=== PATIENT | male | born 1935 | race Caucasian/White ===

== ENCOUNTER 2016-08-17 14:49 | Emergency (ER) | payer BC, OTHER ==
[~2016-08-17 14:49] MED LIST: ASPI81TA28 PO; CALC-20 PO; COEN1CAP28 PO; CYAN100020 PO; FINA5TAB PO; GLUCTAB7 PO; KRIL1000 PO; MULT-506 PO; REDCAP2 PO
[2016-08-17 14:53] VITALS: TEMP 36.7
[2016-08-17] MEDS ORDERED: SODIUM CHLORIDE 0.9% 1000ML 1,000 ML IV STA (15:09)
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
--- NOTE | 2016-08-17 15:23 | DIAGNOSTIC IMAGING REPORT ---
CHEST ONE VIEW PORTABLE CLINICAL HISTORY: Pain, radiating to the abdomen. COMPARISON STUDY: No previous studies for comparison. FINDINGS: The cardiac and mediastinal contours are normal. There is no evidence of focal pulmonary consolidation. There is no evidence of failure. No pleural effusions are visualized.[ There is a calcified granuloma within the right apex. There are minor basilar atelectatic changes. There is no free intraperitoneal air. IMPRESSION: No active disease in the chest. Electronically signed by: Anam Nam M.D. 08/17/2016 3:21 PM Dictated Date/Time: 08/17/2016 3:21 PM
[2016-08-17 15:36] LABS: BASO % 0.4 %; BASO ABS # 0.03 K/uL (0-0.2); COMPLETE YES; EOS % 3.1 %; HEMATOCRIT 40.2 % (42-52); IG% 0.1 %; LYMPH % 13.5 %; LYMPH ABS # 1.15 K/uL (1.2-3.4); MEAN CELL VOLUME 93.5 fL (80-100); MEAN CORPUSCULAR HEMOGLOBIN 32.1 pg (25-34); MEAN CORPUSCULAR HGB CONC 34.3 g/dl (32-36); MEAN PLATELET VOLUME 9.5 fL (7.4-10.4); MONO % 4.9 %; PLATELET COUNT 164 K/uL (130-400); WHITE BLOOD COUNT 8.51 K/uL (4.8-10.8)
[2016-08-17 15:46] LABS: PARTIAL THROMBOPLASTIN RATIO 1.1; PROTHROMBIN TIME (PATIENT) 10.7 SECONDS (9.0-12.0)
[2016-08-17 15:53] LABS: ALT/SGPT 36 U/L (12-78); AST/SGOT 29 U/L (15-37); BLOOD UREA NITROGEN 23 mg/dl (7-18); CALCIUM 8.8 mg/dl (8.5-10.1); CARBON DIOXIDE 27 mmol/L (21-32); CHLORIDE 108 mmol/L (98-107); GLUCOSE 113 mg/dl (70-99); POTASSIUM 4.1 mmol/L (3.5-5.1); SODIUM 141 mmol/L (136-145)
--- NOTE | 2016-08-17 15:56 | DIAGNOSTIC IMAGING REPORT ---
ABDOMEN AND PELVIS CT WITHOUT CONTRAST CT DOSE: 520.54 mGy.cm HISTORY: Pain left flank pain TECHNIQUE: Multiaxial CT images of the abdomen and pelvis were performed without contrast. COMPARISON STUDY: None. FINDINGS: Lung bases are clear. Liver spleen and pancreas are unremarkable. Gallbladder is negative for distention. There is moderate fatty replacement of the pancreas. Right kidney shows several small parapelvic cysts. Right kidney is negative for hydronephrosis. There are findings of mild left renal hydronephrosis. Several left renal parapelvic cysts are also present. Left ureter is moderately distended and to a large calculus of the distal left ureter measuring 16 x 10 mm. This is mainly proximal to the left ureterovesical junction. Bladder is midline. There are no contained calcifications. Prostate is enlarged. Bowel pattern is considered nonobstructive throughout. IMPRESSION: 1. Obstructing calculus distal left ureter with mild/moderate left hydroureteronephrosis. 2. Calculus measures 16 x 10 mm. 3. Remainder of the study is negative. Electronically signed by: Daniel Munroe M.D. 08/17/2016 3:54 PM Dictated Date/Time: 08/17/2016 3:50 PM
[2016-08-17 15:58] LABS: ALKALINE PHOSPHATASE 71 U/L (45-117)
[2016-08-17 16:35] LABS: URINE APPEARANCE CLEAR (CLEAR); URINE BILIRUBIN NEG (NEG); URINE COLOR YELLOW; URINE NITRITE NEG (NEG); URINE PH 7.5 (4.5-7.5); URINE SPECIFIC GRAVITY 1.023 (1.000-1.030); UROBILINOGEN NEG (NEG)
[2016-08-17 16:38] LABS: MANUAL MICROSCOPIC REQUIRED? NO; REVIEW REQ? NO; SULFASALICYLIC ACID POS (NEG)
[2016-08-17] MEDS ORDERED: OXYC1TAB3 PO (17:11)
[2016-08-17 17:53] VITALS: BP 152/75; PULSE 59; O2SAT 96
[2016-08-21] MEDS ORDERED: FINA5TAB PO (16:31)
[2016-08-21] MEDS ORDERED: TAMS0.4C38 PO (16:31)
[2016-08-30] MEDS ORDERED: TAMS0.4C38 PO (12:46)
[2016-08-30] MEDS ORDERED: OXYC-57 PO (12:46)
[2016-08-30] MEDS ORDERED: PHEN-775 PO (12:46)
== END 2016-08-17 17:54 | disposition home or self-care (01) ==
LOC: C.EDB 14:50
DX: N20.2 Calculus of kidney with calculus of ureter (principal); Z98.890 Other specified postprocedural states; Z79.82 Long term (current) use of aspirin

== ENCOUNTER 2016-08-30 07:02 | Day surgery (SDC) | payer BC, OTHER ==
[2016-08-21 16:22] VITALS: BMI 25.0
[~2016-08-30] VITALS: Ht 182.9 cm; Wt 84.1 kg
[~2016-08-30 07:02] MED LIST changes: +CEFAZOLIN IV 2,000 MG/60 ML D5W IV ONE; +CIPROFLOXACIN 500 MG TAB PO SCH; +FENTANYL CITRATE INJ 50 MCG/1 ML 2 ML VIAL ONE; +LACTATED RINGER'S 1000ML 1,000 ML IV SCH; +MIDAZOLAM HCL 1 MG/ML 2ML VIAL ONE; +TAMS0.4C38 PO
[2016-08-30] MEDS ORDERED: REDCAP2 PO (07:33)
[2016-08-30 07:34] VITALS: BP 145/73; PULSE 69; TEMP 36.4; O2SAT 98; Ht 182.9 cm; Wt 84.1 kg
[2016-08-30] MEDS ORDERED: PROPOFOL IV EMULSION 10 MG/ML 20 ML VIAL IV ONE (08:02)
[2016-08-30] MEDS ORDERED: LIDOCAINE HCL 2% 2 ML VIAL (20MG/ML) ONE (08:02)
[2016-08-30] MEDS ORDERED: FENTANYL CITRATE INJ 50 MCG/1 ML 2 ML VIAL ONE (08:02)
[2016-08-30] MEDS ORDERED: DEXAMETHASONE SOD INJ 4 MG/ML VIAL ONE (08:02)
[2016-08-30] MEDS ORDERED: ONDANSETRON INJ 2 MG/ML 2 ML VIAL ONE (08:02)
[2016-08-30] MEDS ORDERED: MIDAZOLAM HCL 1 MG/ML 2ML VIAL ONE (08:02)
[2016-08-30] MEDS ORDERED: FENTANYL CITRATE INJ 50 MCG/1 ML 2 ML VIAL IV PRN (08:30)
[2016-08-30] MEDS ORDERED: ONDANSETRON INJ 2 MG/ML 2 ML VIAL IV PRN (08:30)
[2016-08-30] MEDS ORDERED: ATROPINE SULFATE 0.1 MG/ML 5ML SYR IV PRN (08:30)
[2016-08-30] MEDS ORDERED: EpHEDrine SULFATE INJ 50 MG/ML AMP IV PRN (08:30)
--- NOTE | 2016-08-30 09:59 | History & Physical Bridge Note ---
H&P Re-Evaluation Bridge Note: I have examined the patient, reviewed the History & Physical and in the interval since the performance of the History & Physical I have noted the following changes of clinical significance: No changes noted
[2016-08-30] MEDS ORDERED: EpINEphrine INJ 1MG/ML AMP 1 MG/ML AMP ONE (10:53)
[2016-08-30] MEDS ORDERED: EpHEDrine SULFATE INJ 50 MG/ML AMP ONE ×2 (10:53→11:43)
[2016-08-30] MEDS ORDERED: SODIUM CHLORIDE 0.9% INJ 10 ML VIAL ONE (10:53)
[2016-08-30] MEDS ORDERED: BELLADONNA/OPIUM SUPP 60 MG SUPP PR ONE (10:53)
[2016-08-30] MEDS ORDERED: PHENYLEPHRINE HCL INJ 10 MG/ML VIAL ONE (12:07)
--- NOTE | 2016-08-30 12:43 | DIAGNOSTIC IMAGING REPORT ---
KUB CLINICAL HISTORY: LT CYSTO/LASER/BASKET EXTRACTION/STENT stone extraction TECHNIQUE: Image intensifier COMPARISON STUDY: None FINDINGS: Image intensifier assistance provided for cystoscopy and stone extraction IMPRESSION: Image intensifier usage Electronically signed by: Daniel Munroe M.D. 08/30/2016 12:42 PM Dictated Date/Time: 08/30/2016 12:41 PM
--- NOTE | 2016-08-30 12:45 | [facility] Operative Report ---
Operative Report Operative Date August 30, 2016. Pre-Operative Diagnosis Left distal ureteral stone Post-Operative Diagnosis large left distal ureteral stone, large middle lobe of prostate Procedure(s) Performed cysto, left ureteroscopy, laser lithotripsy basket stone extraction stent placement, Franks catheter placement Surgeon Dr. Jaqueline Pabon Fleet Sales Manager Surgeon(s) None Estimated Blood Loss 30 mL Findings large radio-opaque distal ureteral stone, large middle lobe prostate Fluids 1500 Specimens Permanent specimens A: Left distal ureteral stone for analysis Drains 6 fr 26 centimeter double j stent Anesthesia LMA Complication(s) None Disposition Recovery Room / PACU Indications large distal ureteral stone. Description of Procedure Patient was given general LMA anesthesia and placed in lithotomy position. His genitals were prepped and draped in sterile fashion. Time out held with team. I placed a 21 fr rigid cystoscope to bladder. The urethra is unremarkable. The prostate large with a large middle lobe distorting the trigone projecting into the bladder. The UOs are laterally displaced and slit shape. I placed a road runner wire up left ureter and had some difficulty getting wire passed the large radio-opaque left distal ureteral stone. Once wire passed I switched to a stiff wire via a 5 fr catheter. I used a semirigid short ureteroscope to enter the left ureter. I used a 200 micron holmium laser to fragment the large dense stone into dozens of fragments. I used a 2.4 fr zero tip basket to remove most of the fragments. The UO is very edematous at end. I placed a 6 fr 26 centimeter double J stent for keeping ureer open while edema resolves. I replaced the cystoscope and rinsed the bladder several times. He is bleeding briskly from prostate and so I placed a 20 fr 3 - way franks. I inflated balloon with 10mL of water and secured him to leg strap. I placed a belladonna and opium suppository for post-op pain. He transferred to recovery under my escort, in stable condition. Plan: Home today run CBI until discharge then remove catheter. Pyridium for dysuria x 3 days flomax daily oral pain meds as needed stent removal if KUB ok in 10 -14 days. ASA 2 clean contaminated case 30 seconds fluoro cipro antibiotic receptionist scheduler I attest to the content of the Intraoperative Record and any orders documented therein. Any exceptions are noted below.
[2016-08-30] MEDS ORDERED: OXYC-57 PO (12:46)
[2016-08-30] MEDS ORDERED: TAMS0.4C38 PO (12:46)
[2016-08-30] MEDS ORDERED: PHEN-775 PO (12:46)
--- NOTE | 2016-08-30 12:47 | Discharge Instructions ---
Discharge Instructions Date of Service August 30, 2016. Admission Reason for Admission: Kidney Stone Discharge Discharge Diagnosis / Problem: large distal ureteral stone Discharge Goals Goal(s): Improve disease control Activity Recommendations Activity Limitations: resume your previous activity Lifting Limitations: none Exercise/Sports Limitations: none May Resume Sexual Activity: when tolerated Shower/Bathe: no limitations Driving or Machine Use: no limitations . Instructions / Follow-Up Instructions / Follow-Up report to clinic or ER for clot retention, inability to void for over 4 hours call for fever stent out in 10-14 days Discharge Diet Recommended Diet: Regular Diet Fluid Restriction: None Procedures Procedures Performed: Cystoscopy, Left Ureteroscopy, Laser Lithotripsy, Basket Stone Extraction; Left Ureteral Stent Placement Pending Studies Studies pending at discharge: no Medical Emergencies . Who to Call and When: Medical Emergencies: If at any time you feel your situation is an emergency, please call 911 immediately. . Non-Emergent Contact Non-Emergency issues call your: Urologist ([phone]) Call Non-Emergent contact if: temperature is above 100.5 . . "Provider Documentation" section prepared by Jaqueline Pabon. . VTE Core Measure Inpt VTE Proph given/why not?: SCD's [place] Drug Monitoring Program Search Results: patient reviewed within database, no issues identified
--- NOTE | 2016-08-30 13:26 | Anesthesiology Progress Note ---
Anesthesia Post Op Note Date & Time August 30, 2016 at 13:26 Vital Signs Pain Intensity: 0 Vital Signs Past 12 Hours Date Time Temp Pulse Resp B/P Pulse Ox O2 Delivery O2 Flow Rate FiO2 08/30/16 13:03 36.0 70 16 139/79 100 Room Air 08/30/16 12:57 68 14 08/30/16 12:57 68 14 100 08/30/16 12:55 140/77 08/30/16 12:52 69 15 100 08/30/16 12:52 68 15 08/30/16 12:50 131/75 08/30/16 12:47 70 16 08/30/16 12:47 70 16 100 08/30/16 12:45 138/71 08/30/16 12:42 72 18 08/30/16 12:42 18 08/30/16 12:40 138/74 08/30/16 12:37 36.0 76 16 139/76 100 Mask 10 08/30/16 12:37 76 15 139/76 100 08/30/16 12:37 76 15 08/30/16 07:34 36.4 69 18 145/73 98 Room Air Notes Mental Status: alert / awake / arousable, participated in evaluation Pt Amnestic to Procedure: Yes Nausea / Vomiting: adequately controlled Pain: adequately controlled Airway Patency, RR, SpO2: stable & adequate BP & HR: stable & adequate Hydration State: stable & adequate Anesthetic Complications: no major complications apparent
[2016-08-30 13:55] VITALS: BP 149/79; PULSE 66; O2SAT 94
[2016-08-30 14:25] VITALS: BP 152/81; PULSE 67; TEMP 36.3; O2SAT 94
[2016-08-30 14:39] VITALS: BP 154/90; PULSE 68; TEMP 36.5; O2SAT 97
== END 2016-08-30 15:05 | disposition home or self-care (01) ==
LOC: C.ACU 07:02
PROVIDERS: ATTEND Urology
DX: N20.1 Calculus of ureter (principal); Z68.25 Body mass index [BMI] 25.0-25.9, adult

== ENCOUNTER 2017-12-08 12:40 | Emergency (ER) | payer BC, OTHER ==
[~2017-12-08] VITALS: Ht 182.9 cm; Wt 86.6 kg
[~2017-12-08 12:40] MED LIST changes: -CEFAZOLIN IV 2,000 MG/60 ML D5W IV ONE; -CIPROFLOXACIN 500 MG TAB PO SCH; -FENTANYL CITRATE INJ 50 MCG/1 ML 2 ML VIAL ONE; -LACTATED RINGER'S 1000ML 1,000 ML IV SCH; -MIDAZOLAM HCL 1 MG/ML 2ML VIAL ONE
[2017-12-08 12:47] VITALS: TEMP 36.9; Ht 182.9 cm; Wt 86.6 kg
[2017-12-08] MEDS ORDERED: SODIUM CHLORIDE 0.9% 250ML 250 ML IV STA (13:14)
[2017-12-08] MEDS ORDERED: SODIUM CHLORIDE 0.9% 1000ML 1,000 ML IV STA (13:14)
--- NOTE | 2017-12-08 13:25 | EMERGENCY ROOM VISIT NOTE ---
History Report prepared by Bradley: Suman Montes De Oca Under the Supervision of: Dr. Shereen Herrera M.D. First contact with patient: 13:11 Chief Complaint: DIZZY Stated Complaint: DIZZINESS X 3 DAY History of Present Illness The patient is an 82 year old male who presents to the Emergency Room with complaints of intermittent dizziness beginning a few months ago. The patient states he was at [employer] on Sunday and thought he was going to pass out. He reports he did not pass out and was able to sit down. The patient notes he ate breakfast at 0500 and then felt hungry around 1045. He states he did not eat because he felt like he was going to pass out around 1100, and he had blurry vision. The patient reports he recovered and felt well. He notes he went to the bathroom via a power cart. The patient states he was able to eat on his own afterwards. He reports he went to the [facility] immediately following. The patient notes he had a normal EKG and lab work. He states he was advised to have a full cardiac workout within the next month. The patient reports he is very active. He notes he woke up and went to get his blood work taken instead of going to work. The patient states he then went to breakfast because he was not feeling right still. He denied feeling short of breath or having chest pain. The patient reports he woke up this morning and completed his exercises as normal, except he did not complete as many reps as normal. He notes he still felt lightheaded. The patient denies feeling like the room is spinning or motion sick. He states it feels as if he is going to pass out. The patient reports he has had this feeling intermittently for the past few months. He denies recent trips or surgery, current shortness of breath, current chest pain, leg swelling, and leg pain. The patient notes he started glucosamine/ chondroitin in July. Source of History: patient Onset: a few months ago Quality: other (dizziness) Timing: intermittent Modifying Factors (Worsening): eating, other (sitting down) Associated Symptoms: No LOC, No chest pain, No SOB Note: Associated symptoms: blurred vision Denies: recent trips or surgery, leg swelling, and leg pain Review of Systems See HPI for pertinent positives & negatives. A total of 10 systems reviewed and were otherwise negative. Past Medical & Surgical Medical Problems: (1) Scrotal bleeding Family History Heart disease Social History Smoking Status: Never Smoker Alcohol Use: none Drug Use: none Housing Status: lives alone Occupation Status: employed Current/Historical Medications Scheduled Aspirin (Aspirin Ec), 81 MG PO QAM Calcium Carbonate-Vitamin D (Calcium 600 + D), 0.5 TAB PO BID Coenzyme Q10 (Ubidecarenone) (Co Q10), 100 MG PO BID Cyanocobalamin (Vitamin B12), 1 TAB PO QAM Finasteride (Proscar), 5 MG PO HS Fyvonuzhnft-Hvbppjubviz-Ptp C- (Glucosamine Chondroitin), 1 TAB PO QAM Krill Oil (Krill Oil), 1 CAP PO QAM Multivitamin (Multivitamin), 1 TAB PO QAM Red Yeast Rice Extract (Red Yeast Rice), 1,200 MG PO DAILY Red Yeast Rice Extract (Red Yeast Rice), 600 MG PO HS [gentacol], 3 CAP PO QPM Allergies Coded Allergies: Cephalexin (Verified Allergy, Unknown, unkn, 12/08/17) Physical Exam Vital Signs Date Time Temp Pulse Resp B/P (MAP) Pulse Ox O2 Delivery O2 Flow Rate FiO2 12/08/17 16:48 60 18 121/75 99 12/08/17 15:34 54 16 126/68 99 Room Air 12/08/17 14:34 55 20 126/68 96 Room Air 12/08/17 14:32 122/73 147/78 126/68 12/08/17 13:55 58 12/08/17 12:47 36.9 74 74 131/61 94 Room Air Physical Exam Vital signs reviewed. General: Well-appearing 82 year old male, in no significant distress. HEENT: No scleral icterus, PERRLA, neck supple. Atraumatic. No nystagmus. Cardiovascular: Regular rate and rhythm, no extra sounds. Pulmonary: Clear to auscultation bilaterally, normal work of breathing. Abdomen: Soft, nontender, nondistended, positive bowel sounds. Musculoskeletal: Atraumatic, no peripheral edema. Neurologic: Patient awake alert and oriented x 3, full strength in all 4 extremities. Cranial nerves 2 through 12 grossly intact. Skin: Warm, dry, no rash Medical Decision & Procedures ER Provider Diagnostic Interpretation: Radiology results as stated below per my review and radiologist interpretation: SINGLE VIEW CHEST CLINICAL HISTORY: Dizziness. FINDINGS: An AP, portable, upright chest radiograph is compared to study dated 08/17/2016. The examination is degraded by portable technique and patient rotation. The heart is enlarged and there is atherosclerotic calcification of the thoracic aorta. The pulmonary vasculature is noncongested. Chronic interstitial thickening is similar to previous. Scattered calcified granulomas are observed. A small left pleural effusion is noted and there is bibasilar atelectasis. No airspace consolidation is seen typical for pneumonia. No pneumothorax is seen. The skeletal structures are osteopenic. The bony thorax is grossly intact. Degenerative change is noted in the thoracic spine. IMPRESSION: 1. Cardiomegaly without radiographic evidence of congestive failure. 2. A small left pleural effusion is noted. Electronically signed by: Garry Gillespie M.D. 12/08/2017 2:14 PM Dictated Date/Time: 12/08/2017 2:13 PM Laboratory Results 12/08/17 14:07 Red Blood Count 4.44, Mean Corpuscular Volume 92.8, Mean Corpuscular Hemoglobin 31.5, Mean Corpuscular Hemoglobin Concent 34.0, Mean Platelet Volume 9.6, Neutrophils (%) (Auto) 66.2, Lymphocytes (%) (Auto) 20.7, Monocytes (%) (Auto) 8.0, Eosinophils (%) (Auto) 4.4, Basophils (%) (Auto) 0.5, Neutrophils # (Auto) 3.64, Lymphocytes # (Auto) 1.14, Monocytes # (Auto) 0.44, Eosinophils # (Auto) 0.24, Basophils # (Auto) 0.03 12/08/17 14:07 Test 12/08/17 14:07 12/08/17 14:18 White Blood Count 5.50 K/uL (4.8-10.8) Red Blood Count 4.44 M/uL (4.7-6.1) Hemoglobin 14.0 g/dL (14.0-18.0) Hematocrit 41.2 % (42-52) Mean Corpuscular Volume 92.8 fL (80-100) Mean Corpuscular Hemoglobin 31.5 pg (25-34) Mean Corpuscular Hemoglobin Concent 34.0 g/dl (32-36) Platelet Count 167 K/uL (130-400) Mean Platelet Volume 9.6 fL (7.4-10.4) Neutrophils (%) (Auto) 66.2 % Lymphocytes (%) (Auto) 20.7 % Monocytes (%) (Auto) 8.0 % Eosinophils (%) (Auto) 4.4 % Basophils (%) (Auto) 0.5 % Neutrophils # (Auto) 3.64 K/uL (1.4-6.5) Lymphocytes # (Auto) 1.14 K/uL (1.2-3.4) Monocytes # (Auto) 0.44 K/uL (0.11-0.59) Eosinophils # (Auto) 0.24 K/uL (0-0.5) Basophils # (Auto) 0.03 K/uL (0-0.2) RDW Standard Deviation 46.0 fL (36.4-46.3) RDW Coefficient of Variation 13.6 % (11.5-14.5) Immature Granulocyte % (Auto) 0.2 % Immature Granulocyte # (Auto) 0.01 K/uL (0.00-0.02) Prothrombin Time 10.7 SECONDS (9.0-12.0) Prothromb Time International Ratio 1.0 (0.9-1.1) Activated Partial Thromboplast Time 27.2 SECONDS (21.0-31.0) Partial Thromboplastin Ratio 1.0 D-Dimer 1050 ug/L FEU (0-500) Anion Gap 4.0 mmol/L (3-11) Est Creatinine Clear Calc Drug Dose 64.0 ml/min Estimated GFR () 84.4 Estimated GFR (Non- 72.8 BUN/Creatinine Ratio 18.8 (10-20) Calcium Level 8.7 mg/dl (8.5-10.1) Magnesium Level 2.4 mg/dl (1.8-2.4) Total Bilirubin 0.4 mg/dl (0.2-1) Direct Bilirubin 0.1 mg/dl (0-0.2) Aspartate Amino Transf (AST/SGOT) 20 U/L (15-37) Alanine Aminotransferase (ALT/SGPT) 26 U/L (12-78) Alkaline Phosphatase 73 U/L (45-117) Troponin I < 0.015 ng/ml (0-0.045) Total Protein 7.0 gm/dl (6.4-8.2) Albumin 3.6 gm/dl (3.4-5.0) Thyroid Stimulating Hormone (TSH) 1.840 uIu/ml (0.300-4.500) Lyme Disease IgG Antibody NEG (NEG) Lyme Disease IgM Antibody NEG (NEG) Urine Color YELLOW Urine Appearance CLEAR (CLEAR) Urine pH 5.0 (4.5-7.5) Urine Specific Howell 1.011 (1.000-1.030) Urine Protein NEG (NEG) Urine Glucose (UA) NEG (NEG) Urine Ketones NEG (NEG) Urine Occult Blood NEG (NEG) Urine Nitrite NEG (NEG) Urine Bilirubin NEG (NEG) Urine Urobilinogen NEG (NEG) Urine Leukocyte Esterase NEG (NEG) Laboratory results per my review. Medications Administered Medications (Trade) Dose Ordered Sig/Dina Route Start Time Stop Time Status Last Admin Dose Admin Sodium Chloride 250 ml @ 999 mls/hr Q16M STAT IV 12/08/17 13:14 12/08/17 13:29 DC 12/08/17 14:34 999 MLS/HR Sodium Chloride 1,000 ml @ 125 mls/hr Q8H STAT IV 12/08/17 13:14 12/08/17 17:52 DC 12/08/17 13:14 125 MLS/HR Meclizine HCl (Antivert 25MG Home Pack) 1 homepack UD ONCE PO 12/08/17 16:15 12/08/17 16:16 DC 12/08/17 16:47 1 HOMEPACK ECG Per My Interpretation Indication: other (dizziness) Rate (beats per minute): 59 Rhythm: sinus bradycardia Findings: no acute ischemic change, left axis deviation, no ectopy, other (LVH) Medical Decision Differential diagnosis: Etiologies such as benign positional vertigo, dehydration, hypovolemia, anemia, tumor, infection, hypoglycemia, electrolyte abnormalities, cardiac sources, intracerebral event, toxicologic, neurologic, as well as others were entertained. This patient was evaluated and appeared to be in no significant distress. IV access was obtained and laboratory work was drawn. The patient's initial symptoms seem to be related to perhaps an orthostasis however his vital signs are normal when changing positions. The patient states he exercises daily. He has been attempting to "push through" however has not been able to maintain his level of exertion lately. The patient was hydrated with normal saline solution. Chest x-ray was performed and is negative. EKG reveals no evidence of acute ischemic change. The patient was feeling somewhat improved. Lyme titers are pending. Patient was discharged with a meclizine home pack. Patient will seek reevaluation with his PCP within the next several days if symptoms persist. He will return to the emergency department for worsening of symptoms or any medical concerns. Medication Reconcilliation Current Medication List: was personally reviewed by me Blood Pressure Screening Patient's blood pressure: Normal blood pressure Blood pressure disposition: Did not require urgent referral Impression Primary Impression: Vertigo Scribe Attestation The scribe's documentation has been prepared under my direction and personally reviewed by me in its entirety. I confirm that the note above accurately reflects all work, treatment, procedures, and medical decision making performed by me. Departure Information Referrals Mone Kaufman PA-C (PCP) Patient Instructions My [facility] Additional Instructions Diagnosis: Vertigo Meclizine 25 mg every 8 hours as needed for dizzy symptoms. Please drink plenty of clear fluids. Your Lyme titer is pending. If you do not hear from us tomorrow, call [phone] for follow-up regarding this test. Follow-up with your doctor this week for reevaluation and follow-up on the testing performed in the clinic last week. Return to the emergency department at anytime for worsening of symptoms or any medical concerns.
[2017-12-08] MEDS ORDERED: [UNRECOGNIZED DRUG - OTHER] PO (13:48)
--- NOTE | 2017-12-08 14:16 | DIAGNOSTIC IMAGING REPORT ---
SINGLE VIEW CHEST CLINICAL HISTORY: Dizziness. FINDINGS: An AP, portable, upright chest radiograph is compared to study dated 08/17/2016. The examination is degraded by portable technique and patient rotation. The heart is enlarged and there is atherosclerotic calcification of the thoracic aorta. The pulmonary vasculature is noncongested. Chronic interstitial thickening is similar to previous. Scattered calcified granulomas are observed. A small left pleural effusion is noted and there is bibasilar atelectasis. No airspace consolidation is seen typical for pneumonia. No pneumothorax is seen. The skeletal structures are osteopenic. The bony thorax is grossly intact. Degenerative change is noted in the thoracic spine. IMPRESSION: 1. Cardiomegaly without radiographic evidence of congestive failure. 2. A small left pleural effusion is noted. Electronically signed by: Garry Gillespie M.D. 12/08/2017 2:14 PM Dictated Date/Time: 12/08/2017 2:13 PM
[2017-12-08 14:18] LABS: BASO % 0.5 %; BASO ABS # 0.03 K/uL (0-0.2); EOS % 4.4 %; EOS ABS # 0.24 K/uL (0-0.5); HEMATOCRIT 41.2 % (42-52); IG# 0.01 K/uL (0.00-0.02); LYMPH % 20.7 %; LYMPH ABS # 1.14 K/uL (1.2-3.4); MEAN CELL VOLUME 92.8 fL (80-100); MEAN CORPUSCULAR HEMOGLOBIN 31.5 pg (25-34); MEAN PLATELET VOLUME 9.6 fL (7.4-10.4); MONO ABS # 0.44 K/uL (0.11-0.59); NEUT % 66.2 %; NEUT ABS # 3.64 K/uL (1.4-6.5); PLATELET COUNT 167 K/uL (130-400); RED CELL DISTRIBUTION WIDTH CV 13.6 % (11.5-14.5)
[2017-12-08] MEDS ORDERED: OPTIRAY 320 IV PRN (14:45)
[2017-12-08 14:47] LABS: ALBUMIN 3.6 gm/dl (3.4-5.0); ALKALINE PHOSPHATASE 73 U/L (45-117); ALT/SGPT 26 U/L (12-78); AST/SGOT 20 U/L (15-37); BLOOD UREA NITROGEN 18 mg/dl (7-18); CALCIUM 8.7 mg/dl (8.5-10.1); CARBON DIOXIDE 26 mmol/L (21-32); CREATININE 0.96 mg/dl (0.60-1.40); GLUCOSE 92 mg/dl (70-99); POTASSIUM 4.6 mmol/L (3.5-5.1); SODIUM 137 mmol/L (136-145)
[2017-12-08 14:51] LABS: PTT PATIENT 27.2 SECONDS (21.0-31.0)
--- NOTE | 2017-12-08 16:06 | DIAGNOSTIC IMAGING REPORT ---
CT ANGIOGRAM OF THE CHEST CLINICAL HISTORY: Dizziness. COMPARISON STUDY: Chest x-ray dated 12/08/2017. TECHNIQUE: Following the IV administration of 102 cc of Optiray 320, CT angiogram of the chest was performed from the upper abdomen to the thoracic inlet utilizing the pulmonary embolus protocol. Images are reviewed in the axial, sagittal, and coronal planes. 3-D MIPS images are created and assessed. IV contrast was administered without complication. A dose lowering technique was utilized adhering to the principles of ALARA. CT DOSE: 615.30 mGy.cm FINDINGS: Thyroid: Imaged portions of the thyroid gland are normal in size and attenuation. Thoracic aorta: There is atherosclerotic calcification of the thoracic aorta, which is normal in caliber and demonstrates standard 3-vessel arch anatomy. No dissection is seen. There is less than 50% stenosis in the left subclavian artery. Pulmonary vasculature: The pulmonary trunk is normal in caliber. There are no filling defects identified in main, lobar, or segmental pulmonary branches to suggest pulmonary embolus. Heart: The heart is enlarged and without pericardial effusion. There are coronary artery calcifications. Lungs and pleural spaces: Evaluation of the lung parenchyma is degraded by motion artifact. No airspace consolidation or pleural effusion is identified. There is bibasilar scarring/atelectasis. The trachea and central airways are clear. A calcified granuloma is noted in the right upper lobe. A 3 mm pleural-based nodule in the right middle lobe along the minor fissures seen on image #160 is of doubtful significance. Mediastinum: There is no mediastinal lymphadenopathy. Venus: Clear. Axillae: There is no axillary lymphadenopathy. Upper abdomen: There are numerous calcified splenic granulomas. Colonic interposition is incidentally noted. Partially visualized upper abdominal viscera is otherwise within normal limits. Skeletal structures: The skeletal structures are osteopenic. No lytic or blastic bony lesions are seen. Degenerative change and mild scoliosis are noted in the thoracic spine. Arthritic change is also seen in the shoulders. IMPRESSION: 1. There is no evidence of pulmonary embolus in the main, lobar, or segmental pulmonary arteries. 2. The lungs are clear. 3. Cardiomegaly. 4. Additional findings as above. Electronically signed by: Garry Gillespie M.D. 12/08/2017 4:05 PM Dictated Date/Time: 12/08/2017 3:58 PM
[2017-12-08] MEDS ORDERED: MECLIZINE HCL 25MG HOME PACK PO ONE (16:15)
[2017-12-08 16:48] VITALS: BP 121/75; PULSE 60; O2SAT 99
== END 2017-12-08 16:49 | disposition home or self-care (01) ==
LOC: C.EDB 12:46 → C.EDC 16:49
DX: R42 Dizziness and giddiness (principal); Z79.82 Long term (current) use of aspirin; Z79.899 Other long term (current) drug therapy; Z88.1 Allergy status to other antibiotic agents

== ENCOUNTER 2021-11-08 10:00 | Observation (INO) ==
--- NOTE | 2021-10-10 10:40 | PAT Medication Instructions ---
Medication Instructions Date of Service October 10, 2021 Home Medications aspirin 81 mg tablet,delayed release 81 mg PO QPM biotin 10,000 mcg capsule 10,000 mcg PO QAM coQ10 (ubiquinol) 100 mg capsule 100 mg PO BID cyanocobalamin (vitamin B-12) 5,000 mcg capsule 5,000 mcg PO QAM finasteride 5 mg tablet 5 mg PO HS multivitamin 1 tab PO QAM red yeast rice 600 mg capsule 600 mg PO BID tamsulosin 0.4 mg capsule 0.4 mg PO HS Neureva 1 tab PO QAM amlodipine 2.5 mg tablet 1.25 mg PO QAM STOP taking 2 weeks before surgery (or as soon as possible if surgery is within 2 weeks) biotin 10,000 mcg capsule 10,000 mcg PO QAM coQ10 (ubiquinol) 100 mg capsule 100 mg PO BID red yeast rice 600 mg capsule 600 mg PO BID Neureva 1 tab PO QAM DO NOT take the morning of surgery biotin 10,000 mcg capsule 10,000 mcg PO QAM cyanocobalamin (vitamin B-12) 5,000 mcg capsule 5,000 mcg PO QAM multivitamin 1 tab PO QAM Take morning of surgery With a small sip of water, OTHERWISE NOTHING TO EAT OR DRINK AFTER MIDNIGHT: amlodipine 2.5 mg tablet 1.25 mg PO QAM Take evening before surgery aspirin 81 mg tablet,delayed release 81 mg PO QPM (continue as normal unless told otherwise by surgeon) finasteride 5 mg tablet 5 mg PO HS tamsulosin 0.4 mg capsule 0.4 mg PO HS Other Notes If you have any questions please call us at [phone] or [phone] or [phone] or [phone]
--- NOTE | 2021-10-11 09:14 | Anesthesiology Consultation ---
Date of Service October 11, 2021 Assessment & Plan (1) Encounter for pre-operative examination: COVID screening: Per assessment on 10/11: No known COVID-19 positive contacts or current COVID-19 related symptoms. Travel screen negative. Patient vaccinated. Surgeon arranging preop COVID testing. Awaiting results. Chart Review Chart Review: Acceptable Risk for Surgery and Patient seen in Pre Admission Testing Teaching & Discussion Pre-Anesthesia Teaching/Discussion Notes: Instructed NPO after midnight before surgery,except medications with 15 cc of water. Medication instructions provided according to the PAT guidelines. History Surgery Operation Date: 11/08/21 08:50 Proposed Procedures p Left Total Knee Replacement - Grabiel Woods MD Height/Weight Height: 6 ft Weight: 81.1 kg Allergies Allergy/AdvReac Type Severity Reaction Status Date / Time cephalexin Allergy Unknown Unknown Verified 10/10/21 08:59 Medications Home Medications Medication Instructions Recorded Confirmed Last Taken aspirin 81 mg tablet,delayed 81 mg PO QPM 01/26/21 10/10/21 Unknown release biotin 10,000 mcg capsule 10,000 mcg PO QAM 01/26/21 10/10/21 Unknown coQ10 (ubiquinol) 100 mg capsule 100 mg PO BID 01/26/21 10/10/21 Unknown cyanocobalamin (vitamin B-12) 5,000 mcg PO QAM 01/26/21 10/10/21 Unknown 5,000 mcg capsule finasteride 5 mg tablet 5 mg PO HS 01/26/21 10/10/21 Unknown multivitamin 1 tab PO QAM 01/26/21 10/10/21 Unknown red yeast rice 600 mg capsule 600 mg PO BID 01/26/21 10/10/21 Unknown tamsulosin 0.4 mg capsule 0.4 mg PO 01/26/21 10/10/21 Unknown Neureva 1 tab PO QAM 07/19/21 10/10/21 Unknown amlodipine 2.5 mg tablet 1.25 mg PO QAM 07/19/21 10/10/21 Unknown Past Medical History Medical History Anxiety Possible BPH (benign prostatic hyperplasia) COPD (chronic obstructive pulmonary disease) Mild COPD [facility] Degenerative arthritis of knee, bilateral Hypertension Kidney stones Exercise / Class Metabolic Activity II 4-5 Yardwork/Stairs/Walk up hill Past Family History Family History Other No known health problems Past Surgical History Surgical History History of colonoscopy History of cystoscopy For kidney stones Past Anesthesia History No Hx of Anesthesia Complications and No Family Hx of Anesthesia Complications History of PONV No Hx of PONV and No Hx of Motion Sickness Social History Smoking Status: Never smoker Do You Dip or Chew Tobacco: No Hx Alcohol Use: No Hx Substance Use: No Review of Systems Patient denies chest pain, shortness of breath, dyspnea on exertion, fever, chills, cough, wheezing, palpitations. Physical Exam Vital Signs VITALS BP 145/72 P 63 TEMP 98.3 SP02 96%RA RESP 16 PHYSICAL Full cervical extension range of motion. Full TMJ range of motion. TMD 3 finger breaths Mallampati Score 1 Dentition: upper full denture, few remaining on lower (partial lower) Lungs: clear throughout to auscultation Cardiac: regular rate and rhythm, no murmurs noted Spine: normal Carotid arteries: negative bruit Extremities: no edema Lab Results Anesthesia Preop Results Results Anesthesia Widget: WBC 4.77 K/uL (4.8-10.8) L 10/11/21 Hgb 12.9 g/dL (14.0-18.0) L 10/11/21 Hct 38.3 % (42-52) L 10/11/21 Plt 179 K/uL (130-400) 10/11/21 Na 139 mmol/L (136-145) 10/11/21 K 4.3 mmol/L (3.5-5.1) 10/11/21 Cl 105 mmol/L (98-107) 10/11/21 CO2 31 mmol/L (21-32) 10/11/21 BUN 23 mg/dl (6-23) 10/11/21 Creat 1.11 mg/dl (0.6-1.4) 10/11/21 Glucose Level 80 mg/dl (70-99(Fasting)) 10/11/21 PT 11.1 Seconds (9.0-12.0) 10/11/21 PTT 26.8 Seconds (21.0-31.0) 10/11/21 INR 1.0 (0.9-1.1) 10/11/21 Blood Type A Positive 10/11/21 Antibody Screen NEGATIVE 10/11/21 Testing Electrocardiogram Date: 07/27/21 NSR at 66bpm. NS STA. Chest X-Ray Date: 07/27/21 FINDINGS: No pneumothorax. No pleural effusions. The heart remains top normal in size. Punctate calcified granuloma within the right upper lobe. No evidence for pulmonary edema. No focal lung consolidations to suggest pneumonia. Degenerative changes noted within the shoulders. Mild emphysema. A few right basilar linear densities favor subsegmental atelectasis or scarring. Otherwise, no new focal lung consolidations to suggest pneumonia. IMPRESSION: No significant change compared to the prior study. No acute process.
--- NOTE | 2021-10-30 13:12 | History and Physical Report ---
CHIEF COMPLAINT: Bilateral knee pain and discomfort, left side greater than right. HISTORY OF PRESENT ILLNESS: The patient is an 86-year-old very active gentleman in former [employer] . He presents for surgical treatment of his left knee. He has had a long history of bilateral knee pain and discomfort, left side greater than right. He was actually scheduled for left knee surgery i n the past, but canceled due to COVID epidemic. Since then, the pain he describes had gotten progres sively worse. He has more difficulty walking. For the more he is walking and more he is up and on hi s knee, the more it hurts. Feels unstable. Gives out intermittently. He is ready to have his knee fixed. PAST MEDICAL HISTORY: Significant for: 1. BPH. 2. Hypertension. 3. Kidney stones. PAST SURGICAL HISTORY: None. ALLERGIES: None. CURRENT MEDICATIONS: Include: 1. Finasteride 5 mg daily. 2. Flomax. 3. Aspirin. 4. Amlodipine. SOCIAL HISTORY: An 86-year-old male. Does not smoke. Exercises every morning, but having more diff iculty doing that due to his knee problem. FAMILY HISTORY: Noncontributory. REVIEW OF SYSTEMS: Negative for diabetes, neurologic problem, vascular problem, or bleeding disorder s. No chest pain or shortness of breath. No history of DVT or PE. PHYSICAL EXAMINATION: GENERAL: Shows a healthy, pleasant, elderly male. Looks younger than his stated age. HEENT: Benign. NECK: Supple. No lymphadenopathy. LUNGS: Clear to auscultation. HEART: Has a regular rate and rhythm. ABDOMEN: Soft, nontender, nondistended. EXTREMITIES: Grossly neurovascularly intact except as follows: Examination of the left knee reveals the patient ambulates independently. He has got varus alignment to his knee with a bit of a varus thrust. He has about a 10-degree flexion contracture and can bend to 115. No instability. No pain with hip motion. Examination of the right knee reveals similar varus alignment. Tender medial joint line. Small knee effusion. Range of motion 5-120. X-RAYS: X-rays of the left knee were reviewed. It was a four-view knee series. It shows advanced l eft knee DJD. He has got complete loss of his medial joint space. It describes osteophytes medially as well as subchondral sclerosis. He has got some wear of his medial tibial plateau. ASSESSMENT: An 86-year-old fairly healthy, active gentleman with several medical comorbidities inclu ding BPH, hypertension, kidney stones with advanced bilateral knee DJD, left side greater than right. He is limited by his knee pain. Failed conservative measures. He would like to proceed with left knee replacement. We had scheduled him previously, but canceled due to COVID epidemic. PLAN: We will take him to the operating room and do left total knee replacement. The risks and bene fits of this procedure were explained to the patient and include but not limited to DVT, PE, , i nfection, neurological injury, vascular injury, bleeding problem, pain, limited range of motion, stif fness, failure to relieve symptoms, incomplete relief of symptoms, need for further surgery in the fu ture, fracture, leg length inequality, persistent pain, etc. The patient understands and desires to proceed. Informed consent was obtained. He is planning to be discharged to home with some home health. I believe his family is going to earle in his care at home. Job ID: [id number]
[~2021-11-08 10:00] MED LIST changes: +ACETAMINOPHEN 500 MG TAB PO SCH; -ASPI81TA28 PO; +BUPIVACAINE 0.5 % 5 MG/1 ML PF 10ML VIAL ONE; +BUPIVACAINE LIPOSOME/PF 266 MG, BUPIVACAINE/EPINEPHRINE 50 ML, SODIUM CHLORIDE 0.9% 30 ... INFIL SCH; -CALC-20 PO; -COEN1CAP28 PO; -CYAN100020 PO; +CeleBREX 200 MG CAP PO SCH; +EPINEPHrine INJ 1 MG/ML AMP ONE; +FAMOTIDINE 20 MG TAB PO SCH; -FINA5TAB PO; -GLUCTAB7 PO; -KRIL1000 PO; +LR 500ML BOLUS, THEN 15ML/HR IV SCH; +LR 60ML/HR IV SCH; +METOCLOPRAMIDE HCL 10 MG TABLET PO SCH; -MULT-506 PO; -REDCAP2 PO; +ROPIVACAINE 0.5% 5 MG/ML 30 ML VIAL ONE; -TAMS0.4C38 PO; +TRANEXAMIC ACID 1,000 MG **IV Intra-op IV SCH; +VANCOMYCIN HCL 1,250 MG in SODIUM CHLORIDE 0.9% 250 ML IV SCH
--- NOTE | 2021-11-08 11:08 | History & Physical Bridge Note ---
Date of Service November 08, 2021 History & Physical Bridge Note I have examined the patient, reviewed the History & Physical and in the interval since the performance of the History & Physical I have noted the following changes of clinical significance: no changes noted
[2021-11-08] MEDS ORDERED: LIDOCAINE 2% 2 ML VIAL/AMP(20MG/ML) INFIL ONE (11:21)
[2021-11-08] MEDS ORDERED: PROPOFOL IV EMULSION 10 MG/ML 20 ML VIAL IV ONE ×2 (11:21→13:58)
[2021-11-08] MEDS ORDERED: fentaNYL citrate 100 MCG/2 ML VIAL ONE (11:21)
[2021-11-08] MEDS ORDERED: BUPIVACAINE/EPINEPHRINE 0.25% 1:200,000 30 ML VIAL ONE (11:31)
[2021-11-08] MEDS ORDERED: SODIUM CHLORIDE 0.9% PF 50 ML VIAL ONE (11:41)
[2021-11-08] MEDS ORDERED: MIDAZOLAM HCL 1 MG/ML 2ML VIAL ONE (11:53)
[2021-11-08] MEDS ORDERED: ePHEDrine sulfate 50 MG/ML AMP IV PRN (12:02)
[2021-11-08] MEDS ORDERED: fentaNYL citrate 100 MCG/2 ML VIAL IV PRN (12:02)
[2021-11-08] MEDS ORDERED: ATROPINE SULFATE 0.1 MG/ML 10ML SYR IV PRN (12:02)
[2021-11-08] MEDS ORDERED: ONDANSETRON INJ 2 MG/ML 2 ML VIAL IV PRN ×2 (12:02→16:16)
[2021-11-08] MEDS ORDERED: DEXAMETHASONE SOD INJ 4 MG/ML VIAL ONE (13:09)
[2021-11-08] MEDS ORDERED: KETOROLAC 30 MG/ML VIAL ONE (14:25)
--- NOTE | 2021-11-08 14:51 | Operative Report ---
PG Post Operative Report Pre & Post Diagnosis Operation Date: 11/08/21 12:30 Pre-Op Diagnosis: Left Knee Osteoarthritis Post-Op Diagnosis: Left Knee Osteoarthritis I identified the patient and participated in the time-out.: Yes Procedure Operation Date: 11/08/21 12:30 Actual Procedures p Left Total Knee Replacement(Left) - Grabiel Woods MD Surgeon Grabiel Woods MD Hairspring Studder Caden Grey PA-C Estimated Blood Loss 50 Findings Consistent with Post-Op Diagnosis Operative findings were advanced left knee tricompartment DJD. He had extensive grade 4 [id number] disease in all 3 compartments. He had a fixed varus deformity to his knee with a destruction of some of the posterior medial tibial plateau. Chronic ACL deficiency. Moderate-sized joint effusion. Fluids 1300 cc Specimens Left knee sent for pathology Anesthesia Type Spinal MAC Complications none Disposition Accompanied Patient To Recovery: No Indications Patient is an 86-year-old very active gentleman has had a long history of bilateral knee pain discomfort. Knee is been through extensive conservative treatment which became less successful over time. X-rays show advanced tricompa rtment DJD in both knees. The left knee was bothering more than the right. He elected proceed with left total knee replacement. He had been scheduled previously but canceled due to the COVID epidemic. He has not been rescheduled. Description of Procedure Operative implants consist of: 1 Biomet Vanguard size 67.5 left posterior stabilized femoral component. 2. Biomet size 79 tibial tray. 3. 12 mm posterior stabilized polyethylene insert. 4. 31 x 8 all poly patella. The patient was taken the operating, identified, placed on the operating table supine position. The all contact areas were meticulously padded. Spinal anesthetic and abductor canal block had provided in the holding area. A Sales catheter was placed in sterile fashion. Left thigh tent was then placed in the left lower extremities then prepped and draped in usual sterile fashion. Left leg was elevated exsanguinated with use of an Esmarch i and the tourniquet was set at 300 mmHg. An anterior posterior left knee was then performed through a longitudinal incision centered over the patella. Sharp dissection was carried through subcutaneous this down the extensor mechanism. A medial parapatellar arthrotomy incision was made. Some subperiosteal dissection was carried out medially. The fat pad was resected from Neath patella tendon. Lateral patellofemoral ligament was released. Patella subluxated laterally and the knee was flexed. The osteophytes taken off distal femur. The ACL was absent. The PCL was released from distal femur and the tibia subluxated anteriorly. The external tibial alignment jig was then placed in the interface the tibia adjusted 14 mm medially. Proximal tibial cut was made essentially flush with the most deficient aspect of the posterior medial tibial plateau. The tibia was then sized to a size 79. I did take some fairly large osteophytes off medial and posterior medially. Attention drawn the femur. The distal femur examined the sharp drill. Intramedullary canal was suction. A left 6 degree valgus cutting guide was placed. Distal femoral cutting block was pinned in place. Distal femoral cut was made to take an additional 3 mm of bone off distal femur. The femur was then sized to a size 67.5. The AP cutting block was pinned parallel to the epicondylar axis which was 5 degrees of external rotation. The anterior cut, anterior chamfer, posterior cut, posterior chamfer cuts were made through the box cutting guide was placed in the just slight lateral box cut was made. The knee was flexed. The remnants of the medial and lateral menisci were excised. The osteophytes were taken off the posterior aspect of the femur. A trial femoral component was placed. The tibial tray was pinned in maximum external rotation and the drill and stem punch were used to create defect in proximal tibia for the tibial tray. Knee was then trialed and the 12 mm insert fit most appropriately. Attention drawn the amador la. The patella was cleaned of all soft tissue. Patella thickness measured 22 mm in thickness was cut down to about 14. Was sized to a size 31 patella. The lug holes were drilled for the 31 patella. The lateral osteophyte was removed. Patella button was placed. Knee was taken through range of motion patella tracked nicely with no thumbs test. Attention drawn to place the permanent components. Nupathe all trial components were removed. Bone plug was placed in the distal femur limit blood loss. Double batch Palacos G cement was mixed. A Biomet Vanguard size 67.5 left posterior stabilized femoral component, size 79 tibial tray, 12 mm posterior stabilized polyethylene insert, 31 x 8 all Paller patella were then cemented in place. Knee was brought out into full extension until cement hardened. Final cement check was then performed. Pericapsular tissues were injected with total 100 cc of combination of 20 cc Exparel, 30 cc normal saline, 50 cc of quarter percent Marcaine with epinephrine. Patient did receive 1 g tranexamic acid. The tourniquet was then let down for final turn time 61 minutes. Hemostasis reduced electrocautery. Extensor mechanism closed with combination 1 PDS suture #1 Vicryl suture in [id number] fashion. Extensor mechanism checked found to be intact the subcutaneous tissues then closed with 2 Dexon suture in a buried interrupted fashion skin was closed skin peggy. Leg was then cleaned and dried and sterile dressed with Xeroform, 4 fours, sterile cast padding, Surinder bandage were applied. Patient then transferred to the recovery room in stable condition. The patient tolerated procedure well and there were no complications. Caden Grey, my physician library assistant, was present for the entire procedure. His assistance was essential and required for appropriate patient positioning, prepping and draping, surgical exposure, performing the technical details of the operation, placement the implants, closure of the wound, and placement of the sterile bandage. I attest to the content of the Intraoperative Record and any orders documented therein. Any exceptions are noted below.
--- NOTE | 2021-11-08 15:22 | Anesthesiology Progress Note ---
Date of Service November 08, 2021 Anesthesia Post Procedure Vital Signs Vital Signs: Temp Pulse Pulse Resp BP Pulse Ox 11/08/21 15:10 65 18 115/57 L 93 11/08/21 15:00 67 21 106/57 L 97 11/08/21 14:53 36.4 C L 70 18 109/54 L 98 11/08/21 10:39 36.7 C 63 20 146/76 H 96 Pain Intensity Left Knee: Pain Intensity: 5 Transfer of Care Handoff Completed per policy Notes Mental Status: alert / awake / arousable and participated in evaluation Patient Amnestic to Procedure: Yes Nausea / Vomiting: adequately controlled Pain: adequately controlled Airway Patency, RR, SpO2: stable & adequate BP & HR: stable & adequate Hydration State: stable & adequate Neuraxial Anesthesia: was administered and sensory block is resolving Anesthetic Complications: no major complications apparent and Pt Satisfied with anesthetic care
--- NOTE | 2021-11-08 15:32 | XRay Report ---
XR knee LT 1 or 2V routine CLINICAL HISTORY: Surgical Post Op TECHNIQUE: 2 views of the left knee were obtained. Comparison: None available at the time of this dictation. FINDINGS: Patient is status post total knee arthroplasty with expected postsurgical changes including soft tiss ue swelling and subcutaneous emphysema. No periarticular lucency or hardware fracture is seen. IMPRESSION: Expected postoperative appearance status post placement of total knee arthroplasty. ACT 112: Negative or not required by law. Electronically signed by: Ed Boucher M.D. 11/08/2021 3:31 PM
[2021-11-08] MEDS ORDERED: METOCLOPRAMIDE HCL INJ 5 MG/ML 2 ML VIAL IV PRN (16:16)
[2021-11-08] MEDS ORDERED: bisacodyL 10 MG SUPP PR PRN (16:16)
[2021-11-08] MEDS ORDERED: HYDROmorphone INJ 0.5 MG/0.5 ML SYR IV PRN (16:16)
[2021-11-08] MEDS ORDERED: VANCOMYCIN CONSULT ACTIVE PRN (16:16)
[2021-11-08] MEDS ORDERED: MAGNESIUM HYDROXIDE SUSP 30 ML UDC PO PRN (16:16)
[2021-11-08] MEDS ORDERED: ALUMINUM/MAGNESIUM SUSP 30 ML UDC PO PRN (16:16)
[2021-11-08] MEDS ORDERED: oxyCODONE HCL IR 5 MG TAB (IMMEDIATE RELEASE) PO PRN (16:16)
[2021-11-08] MEDS ORDERED: traMADol HCL 50 MG TABLET PO PRN (16:16)
[2021-11-08] MEDS ORDERED: NALOXONE HCL 0.4 MG/1 ML VIAL/CARP IV PRN (16:16)
[2021-11-08] MEDS: SODIUM CHLORIDE 0.9% 1000ML 1,000 ML IV SCH (16:23)
[2021-11-08] MEDS: KETOROLAC TROMETHAMINE 15 MG/ML VIAL IV SCH ×2 (17:29→21:42)
[2021-11-08] MEDS: ASCORBIC ACID 500 MG TAB PO SCH (17:29)
[2021-11-08] MEDS ORDERED: TRANEXAMIC ACID / 0.7% NACL 1,000 MG/100 ML BAG IV SCH (20:45)
[2021-11-08] MEDS ORDERED: FINASTERIDE 5 MG TAB PO SCH (21:00)
[2021-11-08] MEDS ORDERED: TAMSULOSIN HCL 0.4 MG CAP PO SCH (21:00)
[2021-11-08] MEDS ORDERED: NON-FORMULARY MEDICATION (Coq10 (Ubiquinol) 100 mg Capsule) PO SCH (21:00)
[2021-11-08] MEDS ORDERED: SENNA 8.6 MG TAB PO SCH (21:00)
[2021-11-08] MEDS: ACETAMINOPHEN 500 MG TAB PO SCH (21:42)
[2021-11-08] MEDS: ASPIRIN 81 MG ECTAB PO SCH (21:43)
[2021-11-08] MEDS: DOCUSATE SODIUM 100 MG CAP PO SCH (21:43)
[2021-11-09] MEDS ORDERED: VANCOMYCIN HCL 1,250 MG in SODIUM CHLORIDE 0.9% 250 ML IV SCH (00:45)
[2021-11-09] MEDS: SODIUM CHLORIDE 0.9% 1000ML 1,000 ML IV SCH (05:33)
[2021-11-09] MEDS: ACETAMINOPHEN 500 MG TAB PO SCH ×2 (05:54→13:43)
[2021-11-09] MEDS: KETOROLAC TROMETHAMINE 15 MG/ML VIAL IV SCH ×2 (05:54→10:57)
[2021-11-09 08:21] LABS: Hematocrit (blood only) 33.8 % (40.1-51.0); Hemoglobin 11.6 g/dl (14.0-18.0); Mean Corpuscular Hemoglobin 31.1 pg (25.0-34.0); Mean Corpuscular Hgb Conc 34.3 g/dL (32.0-36.0); Mean Corpuscular Volume 90.6 fL (80.0-100.0); Mean Platelet Volume 9.7 fL (9.4-12.4); Platelet Count 154 K/uL (130-400); RDW Coefficient of Variation 13.1 % (11.5-14.5); RDW Standard Deviation 43.3 fL (36.4-46.3); Red Blood Count 3.73 M/uL (4.63-6.08); White Blood Count 13.22 K/ul (4.8-10.8)
[2021-11-09 08:45] LABS: BUN Creatinine Ratio 30.1 (10-20); Calcium 8.5 mg/dl (8.5-10.1); Creatinine Clr Calc Pharmacy 55.5 ml/min; Est GFR (African American) 75.3 ml/min; Potassium 3.9 mmol/L (3.5-5.1)
[2021-11-09] MEDS: DOCUSATE SODIUM 100 MG CAP PO SCH (08:47)
[2021-11-09] MEDS: dexAMETHasone 10 MG in SYRINGE 0 ML IV SCH ×2 (08:47→10:14)
[2021-11-09] MEDS: ASCORBIC ACID 500 MG TAB PO SCH (08:47)
[2021-11-09] MEDS: ASPIRIN 81 MG ECTAB PO SCH (08:48)
[2021-11-09] MEDS ORDERED: [UNRECOGNIZED DRUG - OTHER] PO SCH (09:00)
[2021-11-09] MEDS ORDERED: NON-FORMULARY MEDICATION (Multivitamin Tablet) PO SCH (09:00)
[2021-11-09] MEDS ORDERED: CYANOCOBALAMIN (B-12) 2,500 MCG TABLET SL SCH (09:00)
[2021-11-09] MEDS ORDERED: amLODIPine BESYLATE 5 MG TAB PO SCH (09:00)
[2021-11-09] MEDS ORDERED: DOCUSATE SODIUM/SENNA 50/8.6MG TAB PO SCH (09:00)
[2021-11-09] MEDS ORDERED: MULTIVITAMIN TAB PO SCH (09:00)
--- NOTE | 2021-11-09 13:24 | Progress Notes ---
DATE OF SERVICE: 11/09/2021. SUBJECTIVE: An 86-year-old gentleman, postoperative day 1 from left knee replacement. He is doing q uite well. Really reports fairly minimal pain. No chest pain or shortness of breath. Not feeling d amparo or lightheaded. OBJECTIVE: VITAL SIGNS: Temperature 36.7. Vital signs are stable. PHYSICAL EXAMINATION: GENERAL: Shows a pleasant elderly male. He is sitting up and talking to his roommate and looks quit e comfortable. LUNGS: Clear to auscultation. HEART: Regular rate and rhythm. ABDOMEN: Soft, nontender, nondistended. EXTREMITIES: Grossly neurovascularly intact except as follows: Examination of the left knee reveals the dressing to be clean, dry and intact. Leg is well aligned. No drainage. He can dorsiflex and plantarflex his foot appropriately. He is neurologically intact. LABORATORY DATA: Hemoglobin 11.6. Hematocrit 33.8. Electrolytes are stable. ASSESSMENT: An 86-year-old gentleman, postoperative day 1 from a left knee replacement, doing pretty well. Pain is controlled. He is neurologically intact. PLAN: 1. DVT prophylaxis includes thigh-high TEDs, SCDs, and aspirin twice a day. 2. PT, OT, weightbear as tolerated. Left total knee protocol. 3. Pain control, doing okay with current pain regimen. 4. Disposition: Plan to discharge to home. He is going to have home health along with family connor wu. We will see how therapy goes today, but hopeful discharge later in the day. Job ID: [id number]
--- NOTE | 2021-11-13 05:59 | Discharge Summary ---
Date of Service November 13, 2021 Discharge Data Procedures Performed Operation Date: 11/08/21 12:30 Actual Procedures p Left Total Knee Replacement(Left) - Grabiel Woods MD Hospital Course (1) Status post total left knee replacement: This is a 86 year old patient admitted on 11/08/21 and underwent total knee arthroplasty. He tolerated the procedure well and there were no complications. Transferred to the PACU post op and later to the orthopedic floor for further care. He was given vancomycin for antibiotic prophylaxis. He was also given JON stockings, SCDs, and aspirin for DVT prophylaxis. Hemoglobin, hematocrit, and vital signs were monitored during his hospital stay and remained stable. Did not require any blood transfusions. There were no complications during his hospital stay. By post op day #1 the patient was tolerating a regular diet, pain was reasonably controlled with oral pain medicine, and he was participating in physical therapy. On post op day #1 the patient was discharged home and set up with home health care. He was given printed discharge instructions including prescriptions for extra strength tylenol, aspirin, toradol, zofran, flomax, and oxycodone. Continue physical therapy, weight bearing as tolerated. Continue JON stockings. Follow up approximately 2 weeks post op or sooner if there are problems or concerns. Coding Level of Care Code None Diagnoses Status post total left knee replacement Z96.652
== END 2021-11-09 13:56 | disposition home health service (06) ==
LOC: ASU 10:00 → PACUINP 10:00 → 3W 16:14

== ENCOUNTER 2022-08-24 06:39 | Observation (INO) ==
--- NOTE | 2022-08-22 13:11 | Anesthesiology Consultation ---
Date of Service August 22, 2022 Assessment & Plan (1) Encounter for pre-operative examination: - Cardiology visit (10/21/21): "1 episode of near syncope likely caused by dehydration and orthostasis. This occurred morning after illness as soon as he got out of bed. No other episodes.. If BP remains slightly elevated may add low-dose HCTZ for ankle edema.. Plan: No changes to medications at this time.. Reduce any intake.. Check BP cuff at next office visit.. Call with BP in 2 m [facility].. May need small HCTZ dose.. RTC in 1 year" - S/P Left TKA (11/08/21): SAB at L3/4 x1 attempt + PNB at [facility]. No issues noted per post-op anesthesia progress note. - Outpatient joint assessment: Pt currently scheduled for inpatient pathway. If surgeon requests review for outpatient joint pathway, patient is not recommended candidate for outpatient joint program from anesthesia standpoint. - COVID screening: Per assessment on 08/21: No known COVID-19 positive contacts or current COVID-19 related symptoms. Patient vaccinated. Travel screen- returned from travel to [place] 08/14. Had cold symptoms 07/31/22 which have resolved (several home tests negative per patient). Discussed option of bringing patient in today for Covid testing due to recent cold symptoms with surgeon's office/Caitlin- due to proximity of surgery, she states they recommend patient just have DOS Schmidt with understanding of potential for cancellation if patient comes back positive. Pt scheduled for admission post-operatively. Plan for COVID Schmidt AM DOS due to possibility that patient may have a roommate. OR aware. Schmidt order placed. Chart Review Chart Review: Acceptable Risk for Surgery and Patient NOT seen in Pre Admission Testing History Surgery Operation Date: 08/24/22 08:50 Proposed Procedures p Right Total Knee Arthroplasty - Grabiel Woods MD Height/Weight Height: 6 ft 1 in Weight: 78.018 kg Allergies Allergy/AdvReac Type Severity Reaction Status Date / Time bee venom protein (honey bee) Allergy Intermediate swelling Verified 08/21/22 16:33 cephalexin Allergy Unknown Unknown Verified 08/21/22 16:33 Medications Home Medications Medication Instructions Recorded Confirmed Last Taken biotin 10,000 mcg capsule 10,000 mcg PO QAM 01/26/21 08/21/22 10/25/21 08:00 coQ10 (ubiquinol) 100 mg capsule 100 mg PO BID 01/26/21 08/21/22 10/25/21 08:00 cyanocobalamin (vitamin B-12) 5,000 mcg PO QAM 01/26/21 08/21/22 10/25/21 07:00 5,000 mcg capsule finasteride 5 mg tablet 5 mg PO HS 01/26/21 08/21/22 11/07/21 21:30 multivitamin 1 tab PO QAM 01/26/21 08/21/22 11/07/21 07:00 red yeast rice 600 mg capsule 600 mg PO BID 01/26/21 08/21/22 10/25/21 07:00 tamsulosin 0.4 mg capsule 0.4 mg PO HS 01/26/21 08/21/22 11/07/21 21:00 acetaminophen 500 mg capsule 1,000 mg PO TID Pain 30 days #180 11/06/21 08/21/22 Unknown caps Balance Of Nature 2 tab PO BID 08/21/22 08/21/22 Unknown amlodipine 5 mg tablet 5 mg PO QAM 08/21/22 08/21/22 Unknown aspirin 81 mg tablet,delayed 81 mg PO QAM 08/21/22 08/21/22 Unknown release (Zuleika Low Dose Aspirin) donepezil 5 mg tablet 5 mg PO QAM 08/21/22 08/21/22 Unknown memantine 10 mg tablet 10 mg PO BID 08/21/22 08/21/22 Unknown acetaminophen 500 mg tablet 1,000 mg PO TID pain 30 days #180 08/22/22 Unknown (Tylenol Extra Strength) tabs aspirin 81 mg tablet,delayed 81 mg PO BID 45 days #90 tabs 08/22/22 Unknown release (Zuleika Low Dose Aspirin) ketorolac 10 mg tablet 10 mg PO TID pain 5 days #15 tabs 08/22/22 Unknown ondansetron 4 mg disintegrating 4 mg PO Q8 PRN nausea #20 tabs 08/22/22 Unknown tablet oxycodone 5 mg tablet 5 - 10 mg PO Q6 PRN pain #40 tabs 08/22/22 Unknown sennosides 8.6 mg tablet (Senokot) 8.6 mg PO BID prevent constipation 08/22/22 Unknown 14 days #28 tabs Past Medical History Medical History AAA (abdominal aortic aneurysm) "small"--just monitor yearly through [place] Anemia Anxiety Possible BPH (benign prostatic hyperplasia) COPD (chronic obstructive pulmonary disease) "Mild" COPD Following with [facility] pulmonary Degenerative arthritis of knee, bilateral Dementia Hypertension Kidney stones Past Family History Family History Other No family history of adverse response to anesthesia No known health problems Past Surgical History Surgical History History of colonoscopy History of cystoscopy For kidney stones Status post total left knee replacement 11/08/21 @ [facility] Social History Smoking Status: Never smoker Do You Dip or Chew Tobacco: No Hx Alcohol Use: No Hx Substance Use: No substance use type: does not use Lab Results Anesthesia Preop Results Results Anesthesia Widget: WBC 6.39 K/ul (4.8-10.8) 08/17/22 Hgb 12.7 g/dl (14.0-18.0) L 08/17/22 Hct 38.0 % (42.0-52.0) L 08/17/22 Plt 205 K/uL (130-400) 08/17/22 Na 139 mmol/L (136-145) 08/17/22 K 4.2 mmol/L (3.5-5.1) 08/17/22 Cl 107 mmol/L (98-107) 08/17/22 CO2 28 mmol/L (21-32) 08/17/22 BUN 28 mg/dl (6-23) H 08/17/22 Creat 1.18 mg/dl (0.6-1.4) 08/17/22 Glucose Level 83 mg/dl (70-99(Fasting)) 08/17/22 PT 10.9 Seconds (9.0-12.0) 08/17/22 PTT 26.8 Seconds (21.0-31.0) 08/17/22 INR 1.0 (0.9-1.1) 08/17/22 Blood Type A Positive 08/17/22 Antibody Screen NEGATIVE 08/17/22 Testing Electrocardiogram Date: 08/22/22 NSR at 67bpm. LAFB. Septal infarct, age undetermined. No significant change compared to 07/27/21 per timber inspector comparison. Echo performed 08/29/21* Chest X-Ray Date: 08/22/22 FINDINGS: Lung volumes are normal. No consolidation is identified to suggest pneumonia. There is a calcified granuloma within the right upper lobe. There is no pneumothorax or pleural effusion. Mild cardiomegaly is unchanged. Mediastinal contours are normal. There is no evidence for pulmonary edema. IMPRESSION: No acute cardiopulmonary findings. No change in appearance of the chest. Echocardiogram Date: 08/29/21 LVEF 50-55%. Wall motion: All segments contract normally. Grade I DD. Mild LAD. Mild to moderate MR. Mild AI. Other Testing 14 day ekg monitor tech (09/15-09/29/21) Occasional PVCs. Short runs of NSVT (45 beats). PACs: Short 1015 beats. Lightheadedness: Correlates with frequent PVCs and trigeminy. EEG (03/07/22) this EEG was normal during wakefulness and drowsiness. No focal abnormalities, potentially epileptogenic discharges, or abnormal slow activity was seen.
[~2022-08-24 06:39] MED LIST changes: -BUPIVACAINE 0.5 % 5 MG/1 ML PF 10ML VIAL ONE; -BUPIVACAINE LIPOSOME/PF 266 MG, BUPIVACAINE/EPINEPHRINE 50 ML, SODIUM CHLORIDE 0.9% 30 ... INFIL SCH; +BUPIVACAINE LIPOSOME/PF 266 MG, BUPIVACAINE/EPINEPHRINE 50 ML, SODIUM CHLORIDE 0.9% PF ... INFIL SCH; -EPINEPHrine INJ 1 MG/ML AMP ONE; -VANCOMYCIN HCL 1,250 MG in SODIUM CHLORIDE 0.9% 250 ML IV SCH; +dexAMETHasone**PF** 10 MG/ML VIAL IV SCH
--- NOTE | 2022-08-24 06:53 | History & Physical Bridge Note ---
Date of Service August 24, 2022 History & Physical Bridge Note I have examined the patient, reviewed the History & Physical and in the interval since the performance of the History & Physical I have noted the following changes of clinical significance: no changes noted
[2022-08-24] MEDS: ceFAZolin 2000MG 2,000 MG/15 ML SYR IV SCH ×4 (07:30→16:28)
[2022-08-24] MEDS ORDERED: MIDAZOLAM HCL 1 MG/ML 2ML VIAL ONE (07:35)
[2022-08-24] MEDS ORDERED: fentaNYL citrate PF 100 MCG/2 ML VIAL ONE (07:35)
[2022-08-24] MEDS ORDERED: VANCOMYCIN CONSULT ACTIVE PRN (08:01)
[2022-08-24] MEDS ORDERED: VANCOMYCIN HCL 1,250 MG in SODIUM CHLORIDE 0.9% 500 ML IV ONE (08:15)
[2022-08-24] MEDS ORDERED: SODIUM CHLORIDE 0.9% PF 50 ML VIAL ONE (08:31)
[2022-08-24] MEDS ORDERED: BUPIVACAINE LIPOSOME 1.3% 266 MG/20 ML VIAL ONE (08:31)
[2022-08-24] MEDS ORDERED: BUPIVACAINE/EPINEPHRINE 0.25% 1:200,000 30 ML VIAL ONE (08:31)
[2022-08-24] MEDS ORDERED: ONDANSETRON INJ 2 MG/ML 2 ML VIAL ONE (09:06)
[2022-08-24] MEDS ORDERED: PROPOFOL IV EMULSION 10 MG/ML 20 ML VIAL IV ONE (09:06)
[2022-08-24] MEDS ORDERED: KETOROLAC 30 MG/ML VIAL ONE (09:24)
[2022-08-24] MEDS ORDERED: ePHEDrine sulfate 50 MG/ML AMP ONE ×2 (10:15→10:25)
[2022-08-24] MEDS ORDERED: SODIUM CHLORIDE 0.9% PF INJ 10 ML VIAL ONE (10:25)
--- NOTE | 2022-08-24 11:01 | Operative Report ---
PG Post Operative Report Pre & Post Diagnosis Operation Date: 08/24/22 08:50 Pre-Op Diagnosis: Right Knee degenerative joint disease Post-Op Diagnosis: Right Knee degenerative joint disease I identified the patient and participated in the time-out.: Yes Procedure Operation Date: 08/24/22 08:50 Actual Procedures p Right Total Knee Arthroplasty(Right) - Grabiel Woods MD Surgeon Grabiel Woods MD Stopping Builder Caden Grey PA-C Estimated Blood Loss 100 Findings Consistent with Post-Op Diagnosis Operative findings were advanced right knee DJD. He had extensive grade 4 sbnu-qq-rntw disease of the medial and patellofemoral compartments. He had a varus deformity to his knee with a large knee joint effusion. Specimens Right knee sent for pathology Drains None Anesthesia Type Spinal MAC Complications none Disposition Accompanied Patient To Recovery: No Indications Patient is an 87-year-old very active gentleman who has had a long history of knee problems over the years. Has been through extensive conservative treatments became less successful over time. He started becoming more limited by his knee arthritis. He had his left knee replaced about 9 months ago and is done well from this. Continue to be limited by right knee pain. He elected proceed with surgical treatment. Description of Procedure Operative implants consist of: 1 Biomet G7 size 67.5 right posterior stabilized femoral component. 2. Biomet size 79 tibial tray. 3. 12 mm posterior stabilized polyethylene insert. 4. 31 x 8 all poly patella. The patient was taken to the operating, identified, placed on the operating table supine position protectors were properly padded. IV antibiotics tried by anesthesia team. A spinal anesthetic and abductor canal block had provided in the holding area. Sales catheter was placed in sterile fashion. Right Tetrick was then placed in the right lower extremities then prepped and draped in usual sterile fashion. The right leg was elevated exsanguinated with use of an Esmarch and tourniquet was placed 300 m mercury. An anterior approach of the right knee was then performed through a longitudinal incision centered over the patella. Sharp dissection was carried through subcutaneous tissue down the extensor mechanism. A medial parapatellar arthrotomy incision was made. Some subperiosteal dissection was carried out medially. The fat pad was dissected from Neath patella tendon. Lateral patellofemoral ligament was released. Patella subluxated laterally and the knee was flexed. The osteophytes taken off distal femur. The ACL and PCL were then released from the distal femur the tibia subluxated anteriorly. The external tibial alignment jig was then placed in the interface the tibia and adjusted 16 mm medially. Proximal tibial cut was made remove about a millimeter bone at most from the most deficient aspect medial tibial plateau. Some osteophytes taken off medial and posterior medially. The tibia was sized to a size 79. Attention drawn the femur. The distal femur was then with a sharp drop with intramedullary canal was suction. A right 6 degree valgus cutting guide was placed. Distal femoral cutting block was pinned in place. Distal femoral cut was made to take an additional 3 mm of bone off distal femur. The femur was then sized to a size 67.5. The AP cutting block was pinned parallel to the epicondylar axis which was 4 degrees of external rotation. The anterior cut, anterior chamfer, posterior cut, posterior chamfer cuts were made. The box cutting guide was placed in just slight lateral and the box cut was made. The knee was flexed. The remnants of the medial and lateral menisci were excised. The osteophytes were taken off the posterior aspect of femur. A trial femoral component was placed. The tibial tray was pinned in maximum external rotation and the drill and stem punch were used to create the defect in proximal tibia for the tibial tray. The knee was then trialed and the 12 mm insert fit most appropriately. Attention drawn the patella. The patella skin of all soft tissues. Patella thickness measured 22 mm in thickness was cut down to 14. Was sized to a size 31 patella. The lug holes were drilled for 31 patella. The lateral osteophyte was removed. Patella button was placed. Knee was taken through range of motion and the patella tracked nicely with no thumbs test. Attention drawn to placing the permanent components. Nupathe all trial components were removed. Bone plug was placed in the distal femur limit blood loss. A double batch Palacos treatment cement was mixed. A Biomet Vanguard size 67.5 right posterior stabilized femoral component, a size 679 tibial tray, a 12 mm posterior stabilized polyethylene insert, and a 31 x 8 all poly patella then cemented in place. Knee was brought out into full extension till cement hardened. Final cement check was then performed. The pericapsular tissues were injected with a total of 100 cc of combination of 20 cc of Exparel, 30 cc normal saline, 50 cc of quarter percent Marcaine with epinephrine. Patient did receive 1 g tranexamic acid. The tourni quet was then let down for final tourniquet time of 58 minutes. Hemostasis assured use electrocautery. Extensor mechanism closed with combination 1 PDS suture and 1 Vicryl suture in a [id number] fashion. Extensor mechanism checked found to be intact with subcutaneous tissue then closed with 2 Dexon suture in a buried knot fashion skin was closed skin peggy. Leg was then cleaned and dried and sterile dressing with Xeroform, 4 fours, sterile ABD pad, sterile cast padding, Surinder bandage were applied. Patient then transferred to the recovery room in stable condition. Patient tolerated the procedure well and there were no complications. Caden Grey, my physician food trades assistants, was present for the entire procedure. His assistance was essential and required for appropriate patient positioning, prepping and draping, surgical exposure, performing the technical details of the operation, placement the implants, closure of the wound, and placement of the sterile bandage. I attest to the content of the Intraoperative Record and any orders documented therein. Any exceptions are noted below.
--- NOTE | 2022-08-24 11:50 | XRay Report ---
RIGHT KNEE 2 VIEWS History: Right total knee arthroplasty. Degenerative arthritis. Postop. FINDINGS: The patient is status post a right total knee arthroplasty. The hardware is intact. No frac ture or dislocation. Skin peggy are in place. IMPRESSION: Right total knee arthroplasty. No evidence for hardware complication. ACT 112: Negative or not required by law. Electronically signed by: Raul Negrete M.D. 08/24/2022 11:47 AM
--- NOTE | 2022-08-24 11:56 | Anesthesiology Progress Note ---
Date of Service August 24, 2022 Anesthesia Post Procedure Vital Signs Vital Signs: Temp Pulse Pulse Resp BP BP Pulse Ox 08/24/22 11:40 64 18 113/55 L 95 08/24/22 11:30 63 20 113/56 L 95 08/24/22 11:20 36.4 C L 66 14 115/57 L 95 08/24/22 11:10 68 14 106/56 L 95 08/24/22 11:00 67 16 102/52 L 97 08/24/22 10:52 36 C L 71 16 95/48 L 100 08/24/22 07:18 36.6 C 58 L 20 104/78 97 O2 Del Method O2 Flow Rate 08/24/22 11:40 Room Air 08/24/22 11:30 Room Air 08/24/22 11:20 Room Air 08/24/22 11:10 Room Air 08/24/22 11:00 Room Air 08/24/22 10:52 Oxymask 6 08/24/22 07:18 Room Air Transfer of Care Handoff Completed per policy Notes Mental Status: alert / awake / arousable and participated in evaluation Patient Amnestic to Procedure: Yes Nausea / Vomiting: adequately controlled Pain: adequately controlled Airway Patency, RR, SpO2: stable & adequate BP & HR: stable & adequate Hydration State: stable & adequate Neuraxial Anesthesia: was administered and sensory block is resolving Anesthetic Complications: no major complications apparent and Pt Satisfied with anesthetic care
[2022-08-24] MEDS ORDERED: ALUMINUM/MAGNESIUM SUSP 30 ML UDC PO PRN (11:59)
[2022-08-24] MEDS ORDERED: METOCLOPRAMIDE HCL INJ 5 MG/ML 2 ML VIAL IV PRN (11:59)
[2022-08-24] MEDS ORDERED: bisacodyL 10 MG SUPP PR PRN (11:59)
[2022-08-24] MEDS ORDERED: HYDROmorphone INJ 0.5 MG/0.5 ML SYR IV PRN (11:59)
[2022-08-24] MEDS ORDERED: oxyCODONE HCL IR 5 MG TAB (IMMEDIATE RELEASE) PO PRN (11:59)
[2022-08-24] MEDS ORDERED: SODIUM CHLORIDE 0.9% 1000ML 1,000 ML IV SCH (11:59)
[2022-08-24] MEDS ORDERED: NALOXONE HCL 0.4 MG/1 ML VIAL/CARP IV PRN (11:59)
[2022-08-24] MEDS ORDERED: ONDANSETRON INJ 2 MG/ML 2 ML VIAL IV PRN (11:59)
[2022-08-24] MEDS: ACETAMINOPHEN 500 MG TAB PO SCH ×2 (14:50→21:18)
[2022-08-24] MEDS: ASCORBIC ACID 500 MG TAB PO SCH (16:26)
[2022-08-24] MEDS: KETOROLAC TROMETHAMINE 15 MG/ML VIAL IV SCH ×2 (16:27→21:18)
[2022-08-24] MEDS ORDERED: TRANEXAMIC ACID / 0.7% NACL 1,000 MG/100 ML BAG IV SCH (17:00)
[2022-08-24] MEDS: MEMANTINE HCL 10 MG TAB PO SCH (20:14)
[2022-08-24] MEDS: FINASTERIDE 5 MG TAB PO SCH (20:14)
[2022-08-24] MEDS: ASPIRIN 81 MG ECTAB PO SCH (20:14)
[2022-08-24] MEDS: SENNA 8.6 MG TAB PO SCH (20:14)
[2022-08-24] MEDS: DOCUSATE SODIUM 100 MG CAP PO SCH (20:14)
[2022-08-24] MEDS: TAMSULOSIN HCL 0.4 MG CAP PO SCH (20:14)
[2022-08-24] MEDS: MAGNESIUM HYDROXIDE SUSP 30 ML UDC PO PRN (20:17)
[2022-08-24] MEDS ORDERED: BALANCE OF NATURE PO SCH (21:00)
[2022-08-24] MEDS ORDERED: SENNA 8.6 MG TAB PO SCH (21:00)
[2022-08-24] MEDS ORDERED: NON-FORMULARY MEDICATION (Coq10 (Ubiquinol) 100 mg Capsule) PO SCH (21:00)
[2022-08-25] MEDS: ceFAZolin 2000MG 2,000 MG/15 ML SYR IV SCH (02:06)
[2022-08-25] MEDS: KETOROLAC TROMETHAMINE 15 MG/ML VIAL IV SCH ×4 (03:52→21:15)
[2022-08-25] MEDS: ACETAMINOPHEN 500 MG TAB PO SCH ×3 (06:03→21:15)
--- NOTE | 2022-08-25 07:41 | Progress Notes ---
DATE OF SERVICE: 08/25/2022. SUBJECTIVE: An 87-year-old gentleman, postoperative day 1 from a right knee replacement. He is doin g well. Really not having much pain. Denies any chest pain or shortness of breath. OBJECTIVE: VITAL SIGNS: Temperature is 36.7. Vital signs are stable. GENERAL: Shows a pleasant, elderly male. He is sitting on bedside chair, looks comfortable. LUNGS: Clear to auscultation. HEART: Regular rate and rhythm. ABDOMEN: Soft, nontender, nondistended. EXTREMITIES: Grossly neurovascularly intact except as follows. Examination of the right leg reveals the dressing to be clean, dry and intact. He can dorsiflex and plantarflex his foot appropriately. He can do a good straight leg raise. LABORATORY DATA: Hemoglobin 12.7. Hematocrit 38.0. Electrolytes are stable. ASSESSMENT: An 87-year-old gentleman, postoperative day 1 from right knee replacement, doing well. Pain is controlled. He is neurologically intact. PLAN: 1. DVT prophylaxis includes thigh-high TEDs, SCDs, and aspirin twice a day. 2. PT/OT, weight bear as tolerated. Right total knee protocol. 3. Pain control, doing okay with current pain regimen. 4. Disposition: Plan to discharge to home with some home health hopefully today if he does okay in therapy. Job ID: [id number]
[2022-08-25] MEDS: ASCORBIC ACID 500 MG TAB PO SCH ×2 (07:42→18:35)
[2022-08-25] MEDS: amLODIPine BESYLATE 5 MG TAB PO SCH (07:59)
[2022-08-25] MEDS: ASPIRIN 81 MG ECTAB PO SCH ×2 (08:00→21:13)
[2022-08-25] MEDS ORDERED: dexAMETHasone 10 MG in SYRINGE 0 ML IV SCH (08:00)
[2022-08-25] MEDS: CYANOCOBALAMIN (B-12) 2,500 MCG TABLET PO SCH (08:00)
[2022-08-25] MEDS: DOCUSATE SODIUM 100 MG CAP PO SCH ×2 (08:01→21:14)
[2022-08-25] MEDS: DONEPEZIL HCL 5 MG TAB PO SCH (08:02)
[2022-08-25] MEDS: MEMANTINE HCL 10 MG TAB PO SCH ×2 (08:02→21:14)
[2022-08-25] MEDS: MULTIVITAMIN TAB PO SCH (08:03)
[2022-08-25] MEDS: SENNA 8.6 MG TAB PO SCH ×2 (08:03→21:14)
[2022-08-25 08:14] LABS: Hematocrit (blood only) 31.1 % (42.0-52.0); Hemoglobin 10.7 g/dl (14.0-18.0); Mean Corpuscular Hgb Conc 34.4 g/dL (32.0-36.0); Mean Corpuscular Volume 93.1 fL (80.0-100.0); Mean Platelet Volume 9.6 fL (9.4-12.4); Platelet Count 166 K/uL (130-400); RDW Coefficient of Variation 13.3 % (11.5-14.5); RDW Standard Deviation 45.5 fL (36.4-46.3); Red Blood Count 3.34 M/uL (4.70-6.10); White Blood Count 13.18 K/ul (4.8-10.8)
[2022-08-25 08:32] LABS: BUN Creatinine Ratio 32.3 (10-20); Calcium 8.8 mg/dl (8.6-10.3); Creatinine Clr Calc Pharmacy 44.9 ml/min; Est GFR (African American) 58.1 ml/min; Est GFR (Non-African American) 50.1 ml/min; Potassium 4.3 mmol/L (3.5-5.1)
[2022-08-25] MEDS ORDERED: NON-FORMULARY MEDICATION (Multivitamin Tablet) PO SCH (09:00)
[2022-08-25] MEDS: MAGNESIUM HYDROXIDE SUSP 30 ML UDC PO PRN (10:03)
[2022-08-25] MEDS: FINASTERIDE 5 MG TAB PO SCH (21:14)
[2022-08-25] MEDS: TAMSULOSIN HCL 0.4 MG CAP PO SCH (21:15)
[2022-08-26] MEDS: ACETAMINOPHEN 500 MG TAB PO SCH (05:07)
[2022-08-26] MEDS: KETOROLAC TROMETHAMINE 15 MG/ML VIAL IV SCH ×2 (05:07→11:52)
--- NOTE | 2022-08-26 08:05 | Progress Notes ---
DATE OF SERVICE: 08/26/2022. SUBJECTIVE: An 87-year-old gentleman postoperative day 2 from a right knee replacement. He has been doing a bit better today. Pain is controlled. He did have a bowel movement and he is very relieved by this. No new complaints. Pain is controlled. OBJECTIVE: VITAL SIGNS: Temperature 36.4. Vital signs are stable. GENERAL: Physical examination shows a pleasant, elderly male. He is sitting up at his bedside and w as reading his e-mail. LUNGS: Clear to auscultation. HEART: Regular rate and rhythm. ABDOMEN: Soft, nontender, nondistended. EXTREMITIES: Grossly neurovascularly intact except as follows. Examination of the right leg reveals the dressing to be clean, dry, and intact. He can dorsiflex and plantarflex his foot appropriately. He is neurologically intact. ASSESSMENT: An 87-year-old gentleman, postoperative day 2 from a right knee replacement, doing well. Seems to be a little bit better this morning. Just relieved by having a bowel movement and feels b king. PLAN: 1. DVT prophylaxis includes thigh-high TEDs, SCDs, and aspirin twice a day. 2. PT/OT, weightbear as tolerated. Right total knee protocol. 3. Pain control, doing okay with current pain regimen. 4. Disposition: Plan to discharge to home with some home health later today if he does okay in [facility]. Job ID: [id number]
[2022-08-26] MEDS: ASCORBIC ACID 500 MG TAB PO SCH (09:02)
[2022-08-26] MEDS: amLODIPine BESYLATE 5 MG TAB PO SCH (09:02)
[2022-08-26] MEDS: DONEPEZIL HCL 5 MG TAB PO SCH (09:03)
[2022-08-26] MEDS: DOCUSATE SODIUM 100 MG CAP PO SCH (09:03)
[2022-08-26] MEDS: MEMANTINE HCL 10 MG TAB PO SCH (09:03)
[2022-08-26] MEDS: CYANOCOBALAMIN (B-12) 2,500 MCG TABLET PO SCH (09:03)
[2022-08-26] MEDS: ASPIRIN 81 MG ECTAB PO SCH (09:03)
[2022-08-26] MEDS: MULTIVITAMIN TAB PO SCH (09:04)
[2022-08-26] MEDS: SENNA 8.6 MG TAB PO SCH (09:04)
== END 2022-08-26 13:12 | disposition home health service (06) ==
LOC: 3E 06:39 → ASU 06:39